=== PATIENT | male | born 1955 | race Caucasian/White ===

== ENCOUNTER 2021-06-03 10:24 | Emergency (ER) | payer OTHER, SELFPAY ==
[~2021-06-03] VITALS: Ht 177.8 cm; Wt 90.7 kg
[2021-06-03] MEDS ORDERED: ALBU8.5H (10:35)
[2021-06-03] MEDS ORDERED: NAPROXEN 250 MG TAB PO ONE (13:05)
[2021-06-03] MEDS ORDERED: NAPR-837 PO (13:06)
[2021-06-03 13:15] VITALS: BP 126/80
== END 2021-06-03 13:16 | disposition home or self-care (01) ==
LOC: M ED 10:24
DX: G56.03 Carpal tunnel syndrome, bilateral upper limbs (principal); F17.200 Nicotine dependence, unspecified, uncomplicated; Z88.0 Allergy status to penicillin; Z88.2 Allergy status to sulfonamides

== ENCOUNTER → 2021-06-29 | Outpatient (REF) ==
[~2021-06-29] MED LIST: ALBU8.5H; NAPR-837 PO
[2021-06-29 17:30] LABS: INFLUENZA A AMPLIFICATION NEGATIVE (NEGATIVE); INFLUENZA B AMPLIFICATION NEGATIVE (NEGATIVE)
== END ==
LOC: M LAB 10:27
DX: Z02.89 Encounter for other administrative examinations